=== PATIENT | male | born 1945 | race Caucasian/White ===

== ENCOUNTER → 2018-06-07 | Day surgery (SDC) | payer MEDICARE, OTHER ==
[2018-06-03 10:41] LABS: BASOPHILS % 0.2 % (0.0-1.0); EOSINOPHILS # (AUTO) 0.2 (0.0-0.4); EOSINOPHILS % 1.5 % (0.0-6.0); HEMATOCRIT 42.9 % (38.2-49.6); HEMOGLOBIN 14.2 g/dL (14.0-18.0); LYMPHOCYTES % 18.9 % (18.0-39.1); MEAN CORPUSCULAR HEMOGLOBIN 32.6 pg (28-32); MEAN CORPUSCULAR HGB CONC 33.1 g/dL (31-35); MEAN CORPUSCULAR VOLUME 98.6 fL (81-99); MONOCYTES # (AUTO) 0.9 (0.2-0.8); MONOCYTES % 8.9 % (4.4-11.3); NEUTROPHILS # (AUTO) 7.3 (2.1-6.9); NEUTROPHILS % 69.9 % (38.7-80.0); PLATELET COUNT 267 x10e3/uL (140-360); RED BLOOD COUNT 4.35 x10e6/uL (4.3-5.7)
--- NOTE | 2018-06-03 11:03 | Diagnostic Imaging Report ---
EXAMINATION: PA and lateral views of the chest. COMPARISON: None CLINICAL HISTORY: Preoperative study for hernia surgery DISCUSSION: Lungs are hyperinflated with increased AP diameter of the chest. No airspace consolidation, pleural effusion, or pneumothorax. Tortuous thoracic aorta with atherosclerotic calcification. Normal heart size. No pulmonary edema. No acute osseous abnormality. Multilevel degenerative disc changes of the thoracic spine. IMPRESSION: No acute cardiopulmonary abnormalities. Signed by: Dr. Tyree Plata M.D. on 06/03/2018 11:00 AM
[~2018-06-07] MED LIST: ADVAIR 250-501 EACH INH; AMOXICILLIN250 MG PO; BACITRACIN 50,000 UNIT VIAL ONE; BUPIVACAINE HCL 0.5% INJ 30 ML VIAL INJ ONE; COMBIVENT RESPIM4 GM IH; DEXAMETHASONE SOD PHOS INJ 4 MG/ML VIAL ONE; FENTANYL CITRATE/PF 100MCG/2 ML INJ ONE; LEVOCETIRIZINE D5 MG PO; LIDOCAINE HCL 2% LOCAL INJ 5 ML SDV VIAL INJ ONE; LOSARTAN POTASS25 MG PO; MIDAZOLAM HCL 2 MG/2 ML VIAL ONE; MONTELUKAST SOD10 MG PO; OMEPRAZOLE40 MG PO; ONDANSETRON HCL INJ 2MG/ML 2ML 2 MG/ML VIAL ONE; PRAVASTATIN SOD40 MG PO; PROPOFOL IV EMULSION 10 MG/ML 20 ML VIAL ONE; RANITIDINE HCL300 MG PO; SEVOFLURANE INHAL SOLN 250 ML PEN BTL ONE; SUCRALFATE1 GM PO; VENTOLIN HFA18 GM INH
--- OUTSIDE RECORDS SUMMARY | 2018-06-07 06:47 | XMS REPORT ---
Author Author [facility] Address Unknown Phone Unavailable Care Team Providers Care C D Area Supervisor Name Role Phone DA MARSH Unavailable Unavailable Problems This patient has no known problems. Allergies, Adverse Reactions, Alerts This patient has no known allergies or adverse reactions. Medications This patient has no known medications. Results Test Description Test Time Test Comments Text Results Atomic Results Result Comments CHEST 2 VIEWS 2018-06-03 10:58:00 [place] [address] Patient Name: YU MONIQUE MR #: [id number] : 1945 Age/Sex: 72/M Req #: [id number] Adm Physician: Ordered by: DA MARSH MD Report #: [id number] Location: OR Room/Bed: Procedure: [id number] DX/CHEST 2 VIEWS Exam Date: 06/03/18 Exam Time: 1045 REPORT STATUS: Signed EXAMINATION: PA and lateral views of the chest. COMPAR JEREMÍAS: None CLINICAL HISTORY: Preoperative study for hernia surgery DISCUSSION: Lungs are hyperinflated with increased AP diameter of the chest. No airspace consolidation, pleural effusion, or pneumothorax. Tortuous thoracic aorta with atherosclerotic calcification. Normal heart size. No pulmonary edema. No acute osseous abnormality. Multilevel degenerative disc changes of the thoracic spine. IMPRESSION: No acute cardiopulmonary abnormalities. Signed by: Dr. Da Martin M.D. on 06/03/2018 11:00 AM Dictated By: DA MARTIN MD 1100 Transcribed By: PHU on 06/03/18 1100 COPY TO: DA MARSH MD
--- OUTSIDE RECORDS SUMMARY | 2018-06-07 06:47 | XMS REPORT | Summary of Care ---
Author Author [facility] Organization [facility] Address Unknown Phone Unavailable Encounter HQ Diandra(FIN) [id number] Date(s): 10/28/17 - 10/28/17 [facility] [address] [place] [address]- Encounter Diagnosis Mucopurulent chronic bronchitis (Final) - Mucopurulent chronic bronchitis (Final) - 11/03/17 Allergic rhinitis, unspecified (Final) - Mixed hyperlipidemia (Final) - Gastro-esophageal reflux disease without esophagitis (Final) - Discharge Disposition: Home or Self Care Attending Physician: Ethan Montoya MD Referring Physician: Ethan Montoya MD Vital Signs No data available for this section Problem List No data available for this section Allergies, Adverse Reactions, Alerts Substance Reaction Severity Status NKDA Active Medications Omnipaque 300 injectable solution 100 mL, Route: IV, Drug Form: nithin COBB, ONCALL, GFR > 45 mL/min, Start date: 10/28/17 14:00:00 CDT, Duration: 1 doses or times Notes: (Same as:Omnipaque 300).WASTE: F/P - Black; E - Municipal Trash Bin Start Date: 10/28/17 Status: Ordered Results CHEM PANEL Most recent to 1 oldest [Reference Range]: eGFR 75 mL/min/1.73m2 1 *NA* (10/28/17 1:00 PM) POC Creatinine 1.0 mg/dL [0.5-1.4 mg/dL] (10/28/17 1:00 PM) 1Result Comment: The eGFR is calculated using the CKD-EPI formula. In most young, healthy individuals the eGFR will be >90 mL/min/1.73m2. The eGFR declines with age. An eGFR of 60-89 may be normal in some populations, particularly the elderly, for whom the CKD-EPI formula has not been extensively validated. Use of the eGFR is not recommended in the following populations: Individuals with unstable creatinine concentrations, including patients and those with serious co-morbid conditions. Patients with extremes in muscle mass or diet. The data above are obtained from the National Kidney Disease Education Program ( NKDEP) which additionally recommends that when the eGFR is used in patients with extremes of body mass index for purposes of drug dosing, the eGFR should be mul tiplied by the estimated BMI. Immunizations No data available for this section Procedures No data available for this section Social History No data available for this section Assessment and Plan No data available for this section
--- OUTSIDE RECORDS SUMMARY | 2018-06-07 06:47 | XMS REPORT | Summary of Care ---
Author Author [facility] [place] Organization [facility] [place] Address Unknown Phone Unavailable Encounter HQ Encntr_alias(FIN) [id number] Date(s): 07/14/17 - 07/14/17 [facility] [place] [address] [place] [phone] Discharge Disposition: Home or Self Care Attending Physician: Ethan Montoya MD Vital Signs No data available for this section Problem List No data available for this section Allergies, Adverse Reactions, Alerts No data available for this section Medications No data available for this section Results No data available for this section Immunizations No data available for this section Procedures No data available for this section Social History No data available for this section Assessment and Plan No data available for this section
--- OUTSIDE RECORDS SUMMARY | 2018-06-07 06:47 | XMS REPORT | Summary of Care ---
Author Author [facility] [place] Organization [facility] [place] Address Unknown Phone Unavailable Encounter HQ Encntr_alias(FIN) [id number] Date(s): 06/08/17 - 06/08/17 [facility] [place] [address] [place] [phone] Discharge Disposition: Home or Self Care Attending [...]
--- OUTSIDE RECORDS SUMMARY | 2018-06-07 06:47 | XMS REPORT | Continuity of Care Document ---
Author Author [facility] Interface Address Unknown Phone Unavailable Problems Problem Status Onset Date Classification Date Reported Comments Source DX: J41.1=MUCOPURULENT CHRONIC BRONCHITI Active 10/26/2017 [facility] Pneumonia due to Escherichia coli 06/16/2017 09/14/2017 [facility] Bronchitis, not specified as acute or chronic 05/27/2017 08/26/2017 [facility] [place] 490 - BRONCHITIS NOS Active 12/11/2016 [facility] [place] Cough 08/26/2017 [facility] [place] Mucopurulent chronic bronchitis 05/17/2018 [facility] Allergic rhinitis, unspecified 05/17/2018 [facility] Mixed hyperlipidemia 05/17/2018 [facility] Gastro-esophageal reflux disease without esophagitis 05/17/2018 [facility] MIXED HYPERLIPIDEMIA Active [facility] GASTRO-ESOPHAGEAL REFLUX DISEASE WITHOUT Active [facility] ALLERGIC RHINITIS, UNSPECIFIED Active [facility] MUCOPURULENT CHRONIC BRONCHITIS Active [facility] Medications Medication Details Route Status Patient Instructions Ordering Provider Order Date Source Omnipaque 300 injectable solution 100 mL, Route: IV, Drug Form: SOLN, kg, ONCALL, GFR > 45 mL/min, Start date: 10/28/17 14:00:00 CDT, Duration: 1 doses or timesNotes: (Same as:Omnipaque 300). WASTE: F/P - Black; E - Municipal Trash Bin Active 10/28/2017 [facility] Allergies, Adverse Reactions, Alerts Substance Category Reaction Severity Reaction type Status Date Reported Comments Source Immunizations Immunization Date Given Site Status Last Updated Comments Source Results Order Name Results Value Reference Range Date Interpretation Comments Source CHEM PANEL POC Creatinine 1.0 mg/dL 0.5 - 1.4 10/28/2017 [facility] CHEM PANEL eGFR 75 mL/min/1.73m2 10/28/2017 Result Comment: The eGFR is calculated using the [...] from the National Kidney Disease Education Program (NKDEP) which additionally recommends that when the eGFR is used in patients with extremes of body mass index for purposes of drug dosing, the eGFR should be multiplied by the estimated BMI. [facility] Chest w/wo contrast CT Chest w/wo contrast CT Chest w/wo contrast CT CLINICAL HX: - J41.1 Mucopurulent chronic bronchitis, E78.2 Mixed hyperlipidemia, K21.9 Gastro-esophageal reflux disease without esophagitis, J30.9 Allergic rhinitis, unspecified. COMPARISON: 07/14/2017 TECHNIQUE: Contiguous transaxial images of the chest were performed without and with IV contrast. Reformats are available in sagittal and coronal projections. CT imaging performed at this location utilizes radiation dose optimization techniques which include one or more of the following: -Automated exposure control -Adjustment of the mA and/or kV according to patient size -Use of iterative reconstruction technique CT Radiation Dose DLP 734 mGy-cm CT CHEST: SUPPORT DEVICES: none LOWER NECK: Symmetric appearance of thyroid gland without focal abnormality. LUNGS AND AIRWAYS: Mild emphysema is present in the upper lungs. There is mild scarring and bronchiectasis noted in the right lower lobe. Previously noted mild residual airspace disease has essentially resolved in the interim. The trachea and the proximal bronchi are patent. CARDIOVASCULAR: The cardiac size is normal. Coronary artery calcifications. There is mild aneurysmal dilation of the ascending aorta with maximum caliber at 4.2 cm, unchanged from previous 2 CT studies. No evidence for dissection. LYMPH NODES: No significant mediastinal or hilar lymphadenopathy. SOFT TISSUE AND BONES: . No significant bony abnormality is noted. ESOPHAGUS AND UPPER ABDOMEN: The esophagus demonstrates normal morphology. Limited images of the upper abdomen reveal fatty infiltration of liver. IMPRESSION: Postinfectious sequela at the right lung base with mild residual scarring and bronchiectasis. Mild aneurysmal dilation of ascending aorta, unchanged from previous 2 CT studies. Mild emphysema, unchanged. Fatty infiltration of liver. SL: [id number] 10/28/2017 - - Read by: Meet Resendez MD Dictated Date/time: 10/29/17 13:08 Electronically Signed by: Meet Resendez MD 10/29/17 13:26 FINAL REPORT [facility] Chest w/wo contrast CT Chest w/wo contrast CT Exam: CT scan of the chest with and without contrast Reason for Exam: Pneumonia Comparison Exam: CT scan 06/08/2017 Technique: Multiple axial images were obtained of the chest. 3.75 mm slices were acquired with and without injection of 100 cc Omnipaque IV. In addition, reformatted sagittal and coronal images were obtained for additional diagnostic information. Total exam GET=257 mGy-cm. Discussion: Visualized portions of the thyroid gland are unremarkable. No mediastinal, hilar, or axillary lymphadenopathy. The heart size is within normal limits. No pericardial or pleural effusions. Moderate amount of coronary artery calcifications are seen. Moderate amount of interval decrease seen within the right and left lower lung airspace opacification. The central airways are patent. No interstitial thickening or bronchiectasis. The visualized portions of the adrenal glands are within normal limits. No evidence seen for thoracic aortic aneurysm or dissection. No acute intraosseous abnormalities seen. No suspicious osteoblastic or osteolytic lesions. Impression: 1. Moderate amount of interval decrease seen within the right and left lower lung airspace opacification. 07/14/2017 - - Read by: Phani Hanna MD Dictated Date/time: 07/15/17 11:37 Electronically Signed by: Phani Hanna MD 07/15/17 11:47 FINAL REPORT [facility] Chest w/wo contrast CT Chest w/wo contrast CT EXAM: CT CHEST WITH AND WITHOUT CONTRAST DATE: 06/08/2017 11:05 AM CDT INDICATION: - J15.5 Pneumonia due to Escherichia coli COMPARISON: Chest x-ray dated 06/01/2017 TECHNIQUE: Volumetric CT acquisition of the chest before and after intravenous contrast. Sagittal and coronal reconstructions are provided. IV contrast: 100 mL Omnipaque DLP: 459 mGy-cm AEC, mA/kV adjustment by patient size, and/or iterative reconstruction technique were used, per departmental dose-optimization program. FINDINGS: Lines and tubes: None Lower neck: Visualized portions are unremarkable. Heart: Mild coronary artery calcifications. No pericardial effusion. Vasculature: The main pulmonary artery has normal caliber. The ascending and descending thoracic aorta measure within normal limits. There is minimal atherosclerotic plaque. Lymph Nodes: There is no pathologic lymphadenopathy. Lungs: The trachea and major bronchi are patent. There is architectural distortion in the bilateral lower lobes. On the right, there are confluent areas of consolidation that are irregular and streaky. A few areas appear spiculated and almost nodular. There is also a wedge-shaped area of groundglass opacity along the major fissure in the right middle lobe. In the left lower lobe, there is mild peribronchial as well as more peripheral basilar spiculation. There is no pleural effusion or abscess. Upper abdomen: Visualized portions reveal a cortical defect in the upper pole of the left kidney, likely due to scarring. Bones: No acute abnormality. Soft tissues: Unremarkable. IMPRESSION: Irregular spiculated opacities bilaterally causing some degree of architectural distortion. Infection remains the primary differential diagnosis due to relative acuity of the findings. Continued follow-up and treatment is recommended. Future considerations for imaging if symptoms and findings persist include PET/CT and image-guided biopsy. 06/08/2017 - - Read by: Juliana Alfaro Dictated Date/time: 06/08/17 16:27 Electronically Signed by: Juliana Alfaro 06/08/17 16:37 FINAL REPORT [facility] Chest 2 views DX Chest 2 views DX EXAM: XR CHEST 2 VIEWS DATE: 06/01/2017 10:34 AM CDT INDICATION: - J15.5 Pneumonia due to Escherichia coli COMPARISON: 05/20/2017 TECHNIQUE: PA and lateral chest radiographs FINDINGS: There is persistent focal airspace disease in the right lung base which is not significantly changed since the prior study. The cardiomediastinal silhouette is stable. No acute bony abnormality is seen. IMPRESSION: Persistent right lower lobe opacity. 06/01/2017 - - Read by: Juliana Alfaro Dictated Date/time: 06/01/17 18:16 Electronically Signed by: Juliana Alfaro 06/01/17 18:18 FINAL REPORT [facility] Chest 2 views DX Chest 2 views DX Exam: Two-view chest x-ray Reason for Exam: - bronchitis Comparison Exam: X-ray 12/11/2016 Discussion: Cardiomediastinal silhouette is within normal limits. Both hemidiaphragms well visualized. No pulmonary edema or pleural effusions. Ill-defined airspace consolidation seen overlying the right lower lung. Correlate for infectious etiology. Trachea is midline. No acute bony abnormalities. Impression: 1. Ill-defined airspace consolidation seen overlying the right lower lung. Correlate for infectious etiology. 05/20/2017 - - Read by: Phani Hanna MD Dictated Date/time: 05/20/17 15:26 Electronically Signed by: Phani Hanna MD 05/20/17 15:27 FINAL REPORT [facility] Sinus paranasal series DX Sinus paranasal series DX Exam: Paranasal sinus x-ray series Reason for Exam: - bronchitis Comparison Exam: None Discussion: Partial opacification seen within the right maxillary sinus. Correlate for sinusitis. The surrounding osseous structures are intact. No suspicious osteoblastic or osteolytic lesions. If there is further clinical concern, a dedicated CT scan should be considered. Impression: 1. Partial opacification seen within the right maxillary sinus. Correlate for sinusitis. 05/20/2017 - - Read by: Phani Hanna MD Dictated Date/time: 05/20/17 15:27 Electronically Signed by: Phani Hanna MD 05/20/17 15:29 FINAL REPORT [facility] Chest 2 views DX Chest 2 views DX EXAM: Chest 2 views DX HISTORY: - bronchitis COMPARISON: 02/12/2009 The heart size is normal and the lungs are clear. There is no pneumothorax. There is trace blunting of the right costophrenic angle suggesting a small right effusion. Moderate discogenic degenerative changes are noted. IMPRESSION: No evidence of pneumonia. Suggestion of small right effusion or pleural thickening. 12/11/2016 - - Read by: Praveena Acosta MD Dictated Date/time: 12/11/16 14:18 Electronically Signed by: Praveena Acosta MD 12/11/16 14:19 FINAL REPORT [facility] Abdomen w/wo contrast CT Abdomen w/wo contrast CT CT scan of the abdomen with and without contrast 07/08/2012 CLINICAL HISTORY: Abdominal pain. Gastritis. Elevated lipase. COMPARISON: None FINDINGS: Evaluation of the lumbar spine demonstrates prominent kyphotic alignment with rather moderate spondylosis changes over multiple levels. This very slight forward subluxation of the named L3 vertebral body relative L4. Moderate disc is reduction at the L oral 5 and L5-S1 intercavernous levels noted there are marginal osteophytes projecting off the lower endplate of L4 and L5 encroaching upon their respective neural foramina. The dorsal elements demonstrate prominent facet arthropathy over multiple levels. The unenhanced study demonstrates no evidence of pathologic calcifications in the kidneys nor elsewhere throughout the abdomen. Following contrast delivery, there is normal enhancement of the liver and spleen. No evidence of mass nor distention the intrahepatic biliary radicals. There is a moderate thickening seen in the gastric fundus which is rather nonspecific the felt to be due to incomplete luminal distention. No mass nor ulceration of the stomach is identified. The pancreas shows normal perfusion. Small benign splenule along the anterior margin of the splenic body. The kidneys enhance is symmetric fashion with the left kidney is a rather extensive loss of the upper cortex due to long-standing vesicoureteral reflux or old infection. Tiny cyst is identified superiorly. No evidence of solid mass. 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 The bowel loops are not particularly dilated. No evidence of mesenteric inflammatory changes nor extraluminal gas nor free fluid. IMPRESSION: 1. Moderate thickening seen in the region the gastric fundus nonspecific although felt to reflect poor luminal distention of the stomach. 2. Substantial loss of the renal cortex seen at the apex of the left kidney reflecting long-standing vesicoureteral reflux or infection. 3. Borderline aneurysmal dilatation involving the distal aorta extending into left common iliac artery. 07/08/2012 - - Read by: Arias Guerra Dictated Date/time: 07/08/12 14:49 Electronically Signed by: Arias Guerra MD 07/08/12 15:00 FINAL REPORT [facility] Vital Signs Vital Sign Value Date Comments Source Encounters Location Location Details Encounter Type Encounter Number Reason For Visit Attending Provider ADM Date DC Date Status Source [facility] [place] [facility] [id number] Ethan Montoya 12/11/2016 12/12/2016 [facility] [place] [facility] [place] [facility] [id number] Ethan Montoya 05/20/2017 05/21/2017 [facility] [place] [facility] [place] [facility] [id number] Ethan Montoya 06/01/2017 06/02/2017 [facility] [place] [facility] [place] [facility] [id number] Ethan Montoya 06/08/2017 06/09/2017 [facility] [place] [facility] [place] [facility] [id number] Ethan Montoya 07/14/2017 07/15/2017 [facility] [place] [facility] Outpatient [id number] Ethan Montoya 10/28/2017 10/29/2017 [facility] Procedures Procedure Code Date Perfomer Comments Source
--- OUTSIDE RECORDS SUMMARY | 2018-06-07 06:47 | XMS REPORT | Summary of Care ---
Author Author [facility] [place] Organization [facility] [place] Address Unknown Phone Unavailable Encounter HQ Encntr_alias(FIN) [id number] Date(s): 12/11/16 - 12/11/16 [facility] [place] [address] [place] [address] [phone] Discharge Disposition: Home or Self Care Attending [...]
--- OUTSIDE RECORDS SUMMARY | 2018-06-07 06:47 | XMS REPORT | Summary of Care ---
Author Author [facility] [place] Organization [facility] [place] Address Unknown Phone Unavailable Encounter HQ Encntr_alias(FIN) [id number] Date(s): 05/20/17 - 05/20/17 [facility] [place] [address] [place] [phone] Encounter Diagnosis Bronchitis, not specified as acute or chronic (Final) - 05/26/17 Cough (Final) - Discharge Disposition: Home or Self [...]
--- OUTSIDE RECORDS SUMMARY | 2018-06-07 06:47 | XMS REPORT | Summary of Care ---
Author Author [facility] [place] Organization [facility] [place] Address Unknown Phone Unavailable Encounter HQ Encntr_alias(FIN) [id number] Date(s): 06/08/17 - 06/08/17 [facility] [place] [address] [place] [phone] Encounter Diagnosis Pneumonia due to Escherichia coli (Final) - 06/15/17 Discharge Disposition: Home or Self Care Attending [...]
[2018-06-07 12:30] VITALS: BP 152/88
--- NOTE | 2018-06-07 17:08 | Operative Report ---
DATE OF PROCEDURE: 06/07/2018 SURGEON: Tyree Nichole MD PREOPERATIVE DIAGNOSIS: Right inguinal hernia. POSTOPERATIVE DIAGNOSIS: Right inguinal hernia. PROCEDURE: Repair of right inguinal hernia with mesh. [employer]: None. ANESTHESIA: General. INDICATIONS AND FINDINGS: The patient is a 72-year-old male complaints of a bulge in the right groin that is increased in size, surgery based on having a direct right inguinal hernia. TECHNIQUE: After adequate general anesthesia with the patient in supine position, the right groin area was prepped and draped in a sterile fashion with ChloraPrep solution. Transverse incision made and carried down through subcutaneous tissue and Hayley's fascia until the external oblique fascia was seen. This was opened in direction of its fibers through the external ring. The ilioinguinal nerve was identified and preserved gently, dissected away from the inguinal canal. The spermatic cord was dissected free from the floor of the inguinal canal. The spermatic cord was dissected free and was found to be a direct hernia. There was no evidence of indirect hernia sac. The floor of the inguinal canals was then opened up to the direct hernia defect and to the preperitoneal space. A large Prolene mesh hernia system, which had been soaked in antibiotic solution was placed through the hernia defect with the underlay patch opened up in the preperitoneal space. Onlay patch was laid over the floor of the inguinal canal. The keyhole opening created to allow exit to the spermatic cord. The onlay patch was sutured to the shelving edge of inguinal ligament laterally and conjoint tendon medially. This was done with interrupted sutures of 0 prolene. Care was taken not to entrap the general femoral or iliohypogastric nerves. Once the mesh was in place, the spermatic cord and ilioinguinal nerve were returned to their normal positions. The wound was inspected for hemostasis, which was seen to be adequate. The wound was then infiltrated with 0.5% Marcaine. The external oblique fascia was then closed with running suture of 3-0 Vicryl. Hayley's fascia was closed with running suture of 3-0 Vicryl. Care was taken not to entrap the spermatic cord or ilioinguinal nerve during the closure. The skin was closed with a running subcuticular suture of 4-0 Vicryl. Dermabond and sterile dressing were applied. The patient tolerated the procedure well. Estimated blood loss was 5 mL. There were no complications. All counts were correct. The patient was taken to the recovery room in satisfactory condition. MD ANIBAL Benitez/LOLY /[id number] cc: Ethan Montoya
== END | disposition home or self-care (01) ==
LOC: OR 06:43
PROVIDERS: ATTEND Surgery
DX: K40.90 Unilateral inguinal hernia, without obstruction or gangrene, not specified as recurrent (principal); J44.9 Chronic obstructive pulmonary disease, unspecified; I10 Essential (primary) hypertension; I71.4 Abdominal aortic aneurysm, without rupture; Z01.810 Encounter for preprocedural cardiovascular examination; Z01.812 Encounter for preprocedural laboratory examination; Z01.818 Encounter for other preprocedural examination; Z87.891 Personal history of nicotine dependence
CPT/HCPCS: 36415; 49505; 71046; 85025; 93005; C1781; J1100; J2001; J2250; J2405; J2704